=== PATIENT | female | born 1930 | race Caucasian/White ===

== ENCOUNTER → 2016-08-20 | Outpatient (CLI) | payer OTHER ==
[2016-03-02 14:05] VITALS: BP 183/104
--- NOTE | 2016-08-20 16:39 | RAD ---
HISTORY: Possible aspiration, coughing Study: Single-view chest Comparison: March 02, 2016 Findings: The trachea is midline. The cardiac silhouette is unremarkable. There are low lung volumes but no evidence of acute infiltrate or consolidation. Very mild right perihilar subsegmental atelectasis is noted. There is alteration of the bilateral costophrenic angles were small volume pleural effusions cannot be excluded. The bony thorax is grossly intact. IMPRESSION: 1. Mild subsegmental atelectasis but without acute infiltrate or consolidation. Obscuration of the bilateral costophrenic angles could reflect small volume bibasilar pleural effusions. Reported By:
== END | disposition home or self-care (01) | DRG 204 ==
LOC: RAD 13:26
PROVIDERS: ATTEND Internal Medicine
DX: R05 Cough (principal); J98.11 Atelectasis
CPT/HCPCS: 71010

== ENCOUNTER → 2016-08-28 | Outpatient (CLI) | payer OTHER ==
[2016-03-02 14:05] VITALS: BP 183/104
--- NOTE | 2016-08-29 07:26 | RAD ---
HISTORY: Cough Study: Chest one view Comparison: August 20, 2016 Findings: The trachea is midline. The cardiac silhouette is mildly enlarged. No congestive heart failure is n oted. The aorta is calcified.. The lungs are clear without focal infiltrate or effusion. There is s ubsegmental atelectasis in the right perihilar region. The bony thorax is unremarkable. IMPRESSION: 1. Mild cardiomegaly without congestive heart failure 2. Subsegmental atelectasis right perihilar region Reported By:
== END ==
LOC: RAD 19:02
PROVIDERS: ATTEND Internal Medicine
DX: R05 Cough (principal); R09.89 Other specified symptoms and signs involving the circulatory and respiratory systems; Z79.01 Long term (current) use of anticoagulants
CPT/HCPCS: 36415; 71010; 85610

== ENCOUNTER 2016-09-03 22:15 | Observation (INO) | payer OTHER ==
[2016-09-03] MEDS ORDERED: LEVAQUIN PREMIX IV 750 MG 750 MG/150 ML BAG IV ONE (23:00)
[2016-09-03] MEDS ORDERED: TUSSIONEX PENNKINETIC SUSP PO PRN (23:08)
[2016-09-03] MEDS ORDERED: NS 1/2 1000 ML IV 1,000 ML IV ONE (23:17)
[2016-09-03] MEDS: NS 1/2 1000 ML IV 1,000 ML IV SCH (23:31)
[2016-09-04] MEDS ORDERED: SALINE 3% 15 ML NEB TX ONE (00:04)
[2016-09-04] MEDS ORDERED: DUONEB 0.5 MG/3 MG ONE (00:04)
[2016-09-04 00:09] LABS: BASOPHILS % (AUTO) 0.1 % (0.2-1.0); EOSINOPHILS % (AUTO) 0.5 % (0.9-2.9); HEMATOCRIT 40.4 % (36.0-47.0); HEMOGLOBIN 13.4 g/dL (12.0-16.0); LYMPHOCYTES # (AUTO) 1.5 X10^3/uL (1.3-2.9); LYMPHOCYTES % (AUTO) 25.2 % (21.0-51.0); MEAN CORPUSCULAR HEMOGLOBIN 32.1 pg (27.0-34.0); MEAN CORPUSCULAR HGB CONC 33.2 g/dL (33.0-35.0); MEAN CORPUSCULAR VOLUME 96.5 fL (80.0-100.0); MEAN PLATELET VOLUME 8.5 fL (7.4-11.0); MONOCYTES # (AUTO) 0.8 x10^3/uL (0.3-0.8); MONOCYTES % (AUTO) 13.5 % (0.0-13.0); NEUTROPHILS # (AUTO) 3.6 x10^3/uL (2.2-4.8); NEUTROPHILS % (AUTO) 60.7 % (42.0-75.0); PLATELET COUNT 310 X10^3/uL (150.0-450.0); RED BLOOD COUNT 4.18 X10^6/uL (3.5-5.4); RED CELL DISTRIBUTION WIDTH 16.3 % (11.6-16.5); WHITE BLOOD COUNT 5.9 X10^3/uL (3.6-10.0)
[2016-09-04 00:15] LABS: ALANINE AMINOTRANSFERASE 34 Units/L (12-78); ALKALINE PHOSPHATASE 76 Units/L (46-116); ASPARTATE AMINO TRANSFERASE 34 Units/L (15-37); BLOOD UREA NITROGEN 15 mg/dL (7-18); CALCIUM 8.7 mg/dL (8.5-10.1); CARBON DIOXIDE 32.9 mmol/L (21-32); CHLORIDE 105 mmol/L (98-107); COR CA(FOR HYPOALB) 9.5 mg/dL (8.5-10.1); CREATININE 0.67 mg/dL (0.55-1.02); GLUCOSE 107 mg/dL (65-99); SODIUM 143 mmol/L (136-145); TOTAL PROTEIN 7.2 g/dL (6.4-8.2); eGFR BLACK RACES > 60 (>60); eGFR NON BLACK RACES > 60 (>60)
[2016-09-04 01:00] VITALS: BMI 20.5
[2016-09-04] MEDS: DUONEB 0.5 MG/3 MG NEB SCH ×5 (04:28→20:48)
--- NOTE | 2016-09-04 06:01 | RAD ---
HISTORY: Cough, pneumonia Study: Chest one view Comparison: August 28, 2016 Findings: The heart is mildly enlarged. No congestive heart failure is noted. No acute alveolar infiltrates ar e identified. Right perihilar and left basilar subsegmental atelectasis is present. No infiltrates a re identified. No pleural effusions are present. The bony thorax is unremarkable. IMPRESSION: Mild cardiomegaly without congestive heart failure Right perihilar and left basilar subsegmental atelectasis Reported By:
[2016-09-04 07:41] LABS: BASOPHILS % (AUTO) 0.2 % (0.2-1.0); EOSINOPHILS % (AUTO) 0.1 % (0.9-2.9); HEMATOCRIT 36.3 % (36.0-47.0); HEMOGLOBIN 12.3 g/dL (12.0-16.0); LYMPHOCYTES # (AUTO) 0.8 X10^3/uL (1.3-2.9); LYMPHOCYTES % (AUTO) 10.2 % (21.0-51.0); MEAN CORPUSCULAR VOLUME 94.1 fL (80.0-100.0); MEAN PLATELET VOLUME 8.1 fL (7.4-11.0); MONOCYTES # (AUTO) 0.8 x10^3/uL (0.3-0.8); MONOCYTES % (AUTO) 10.2 % (0.0-13.0); NEUTROPHILS # (AUTO) 5.9 x10^3/uL (2.2-4.8); NEUTROPHILS % (AUTO) 79.3 % (42.0-75.0); PLATELET COUNT 281 X10^3/uL (150.0-450.0); RED BLOOD COUNT 3.86 X10^6/uL (3.5-5.4); RED CELL DISTRIBUTION WIDTH 16.3 % (11.6-16.5); WHITE BLOOD COUNT 7.5 X10^3/uL (3.6-10.0)
[2016-09-04 07:57] LABS: ALANINE AMINOTRANSFERASE 34 Units/L (12-78); ALBUMIN 2.8 g/dL (3.4-5.0); ALKALINE PHOSPHATASE 67 Units/L (46-116); ASPARTATE AMINO TRANSFERASE 35 Units/L (15-37); BLOOD UREA NITROGEN 12 mg/dL (7-18); CALCIUM 8.3 mg/dL (8.5-10.1); CARBON DIOXIDE 27.4 mmol/L (21-32); CHLORIDE 103 mmol/L (98-107); COR CA(FOR HYPOALB) 9.3 mg/dL (8.5-10.1); GLUCOSE 101 mg/dL (65-99); SODIUM 138 mmol/L (136-145); TOTAL PROTEIN 6.7 g/dL (6.4-8.2); eGFR BLACK RACES > 60 (>60); eGFR NON BLACK RACES > 60 (>60)
[2016-09-04] MEDS: ROBITUSSIN DM PO SCH ×4 (08:52→21:59)
[2016-09-04] MEDS ORDERED: NS 1/2 1000 ML IV 1,000 ML IV ONE (14:14)
[2016-09-04] MEDS: NS 1/2 1000 ML IV 1,000 ML IV SCH (14:17)
[2016-09-04] MEDS ORDERED: TYLENOL ELIXIR 325 MG UDC PO PRN (17:28)
[2016-09-04] MEDS ORDERED: TORADOL 15 MG VIAL IM PRN (17:28)
[2016-09-04] MEDS: LACTOSE REDUCED FOOD PO SCH ×2 (17:58→21:53)
[2016-09-04] MEDS: LASIX PO SCH (17:58)
[2016-09-04] MEDS: ZANTAC PO SCH (17:58)
[2016-09-04] MEDS: VOLTAREN 1 % GEL MULTI DOSE TUBE TOP SCH (18:59)
[2016-09-04] MEDS ORDERED: COUMADIN TAB 5 MG PO SCH (21:00)
[2016-09-05] MEDS: DUONEB 0.5 MG/3 MG NEB SCH ×4 (00:16→12:18)
[2016-09-05] MEDS: VOLTAREN 1 % GEL MULTI DOSE TUBE TOP SCH ×2 (01:13→06:28)
[2016-09-05] MEDS ORDERED: NS 1/2 1000 ML IV 1,000 ML IV ONE (03:19)
[2016-09-05] MEDS: NS 1/2 1000 ML IV 1,000 ML IV SCH (03:20)
[2016-09-05 04:49] LABS: BASOPHILS % (AUTO) 0.2 % (0.2-1.0); HEMOGLOBIN 11.9 g/dL (12.0-16.0); LYMPHOCYTES % (AUTO) 6.6 % (21.0-51.0); MEAN CORPUSCULAR HEMOGLOBIN 31.4 pg (27.0-34.0); MEAN CORPUSCULAR VOLUME 95.1 fL (80.0-100.0); MEAN PLATELET VOLUME 8.3 fL (7.4-11.0); MONOCYTES % (AUTO) 6.8 % (0.0-13.0); NEUTROPHILS # (AUTO) 12.4 x10^3/uL (2.2-4.8); NEUTROPHILS % (AUTO) 86.4 % (42.0-75.0); PLATELET COUNT 282 X10^3/uL (150.0-450.0); RED BLOOD COUNT 3.78 X10^6/uL (3.5-5.4); WHITE BLOOD COUNT 14.3 X10^3/uL (3.6-10.0)
[2016-09-05 05:03] LABS: ALANINE AMINOTRANSFERASE 33 Units/L (12-78); ALBUMIN 2.8 g/dL (3.4-5.0); ALKALINE PHOSPHATASE 73 Units/L (46-116); ASPARTATE AMINO TRANSFERASE 29 Units/L (15-37); BLOOD UREA NITROGEN 9 mg/dL (7-18); CALCIUM 8.6 mg/dL (8.5-10.1); CHLORIDE 103 mmol/L (98-107); COR CA(FOR HYPOALB) 9.6 mg/dL (8.5-10.1); CREATININE 0.58 mg/dL (0.55-1.02); GLUCOSE 96 mg/dL (65-99); SODIUM 138 mmol/L (136-145); TOTAL PROTEIN 6.7 g/dL (6.4-8.2); eGFR BLACK RACES > 60 (>60); eGFR NON BLACK RACES > 60 (>60)
[2016-09-05] MEDS ORDERED: LEVAQUIN PREMIX IV 750 MG 750 MG/150 ML BAG IV SCH (09:00)
[2016-09-05] MEDS: LACTOSE REDUCED FOOD PO SCH (09:46)
[2016-09-05] MEDS: LASIX PO SCH (09:46)
[2016-09-05] MEDS: ROBITUSSIN DM PO SCH (09:47)
[2016-09-05] MEDS: ZANTAC PO SCH (09:47)
--- NOTE | 2016-09-05 10:58 | DR.H&P ---
H&P - History & Physical for Day of: H&P Date: 09/03/16 - Chief Complaint Chief Complaint: cough, shortness of breath - Allergies Allergies/Adverse Reactions: Allergies Allergy/AdvReac Type Severity Reaction Status Date / Time No Known Drug Allergies Allergy Verified 09/04/16 21:24 - History of Present Illness History of Present Illness: Patient is a 86yo female who was directed admitted to the hospital from [facility] related to worsening cough and running a low grade temperature as well as hypertension and increased pulse. Patient has a history of dementia, hyperlipidemia, hypertension, osteoarthritis , anemia, anxiety and she is aphasic. Patient has been in a chronic debilitative state. We are going to admit patient and start on pneumonia protocol with Levaquin IV and NS@75ml/hr. Vital signs on arrival 97.4, 92, 18, 96%, 151/71. Labs on arrival within normal limits with the exception of [place]% 13.5, Eos% 0.5, Baso% 0.1, Carbon dioxide 32.9, Glucose 107, Albumin 3.0, Albumin/globulin ratio 0.7. Chest xray show mild cardiomegaly without congestive heart failure, right perihilar and left basilar subsegmental atelectasis. We will follow up with patient in the am with repeat labs in the am. - Past Medical History Past Medical History: Alzheimers, Anemia, Anxiety, Dementia, Dyslipidemia, Hypertension Additional Medical History: UTI's, Muscle Weakness, Osteoarthritis, Previous Blood Transfusion - Past Surgical History Surgical History: No History - Family History Family Medical History: Cancer, [place] - Social History Does patient currently use any type of tobacco product: No Have you used tobacco products in the last 12 months: No Type of Tobacco Use: None Does any household member use tobacco: No Alcohol Use: None Drug Use: None - Medications Home Medications: Zantac 150mg daily, voltaren gel TID, tlenol elixir 650mg TID PRN, Lasix 20mg daily, ensure enlive BID, Coumadin 5mg at bedtime - Review of Systems Constitutional: Fever Eyes: No Symptoms Reported ENT: No Symptoms Reported Respiratory: Cough, Sputum Cardiovascular: No Symptoms Reported Gastrointestinal: No Symptoms Reported Genitourinary: No Symptoms Reported Musculoskeletal: No Symptoms Reported Skin: No Symptoms Reported Neurological: No Symptoms Reported - Physical Exam Vital Signs: 97.4, 92, 18, 96%, 151/71dddddddddddddd Oriented: Unable to test Eyes: Normal Ear: Normal Nose: Normal Throat: Normal Respiratory: Rhonchi Throughout Cardiovascular: Normal : Normal Auscultation: Bowel Sounds: Normal Palpation: Normal Tenderness: Normal Skin: Normal Musculoskeletal: Instability Mood Description: Flat, Appropriate Affect: Flat Speech Pattern: Aphasic - Assessment/Plan (1) Pneumonia Qualifiers: Pneumonia type: P Aspiration pneumonia type: A Laterality: L Lung location: L Status: Acute Plan: pneumonia protocol, levaquin IV
--- NOTE | 2016-09-05 11:17 | PCM.PROG ---
Progress Note - Progress Note for Day of Date: 09/04/16 - Subjective Subjective: Patient is an 86yo female admitted with pneumonia. Patient is noted to have bilateral rhochi and productive cough. Patient is in a chronic debilitative state and aphasic. Family has voiced that the do not want any resuscitative measures taken on patient. Vital signs this am are 98.4, 115, 18, 94%, 131/88. Labs are within normal limits with the exception of Neut% 79.3, Lymph% 10.2, Eos% 0.1, Neut# 5.9, Lymph# 0.8, INR 2.86, Glucose 101, Calcium 8.3 , Albumin 2.8, Albumin/globulin ratio 0.7. Patient is an 86yo female admitted with pneumonia. Patient is noted to have bilateral rhochi and productive cough. Patient is in a chronic debilitative state and aphasic. Family has voiced that the do not want any resuscitative measures taken on patient. Vital signs this am are 98.4, 115, 18, 94%, 131/88. Labs are within normal limits with the exception of Neut% 79.3, Lymph% 10.2, Eos% 0.1, Neut# 5.9, Lymph# 0.8, INR 2.86 , Glucose 101, Calcium 8.3, Albumin 2.8, Albumin/globulin ratio 0.7. - Past Medical Family Social History Past Med/Fam/Surg Hx: No changes since H&P Allergies: Allergies No Known Drug Allergies Allergy (Verified 09/04/16 21:24) - Review of Systems ROS: No change since H&P - Vital Signs and I&O's Vital Signs: 98.4, 115, 18, 94%, 131/88. Intake and Output: Intake & Output 09/02/16 09/03/16 09/04/16 09/05/16 11:59 11:59 11:59 11:59 Intake Total 463 742 Balance 463 742 - Physical Exam Oriented: Unable to test Eyes: Normal Ear: Normal Nose: Normal Throat: Normal Respiratory: Right, Left, Rhonchi Cardiovascular: Normal : Normal Auscultation: Bowel Sounds: Normal Palpation: Normal Tenderness: Normal Skin: Normal Musculoskeletal: Instability Psychiatric: Normal Mood Description: Flat, Appropriate Affect: Flat Speech Pattern: Aphasic - Laboratory and Diagnostics Result Diagrams: 09/05/16 04:00 09/05/16 04:00 Labs: Labs are within normal limits with the exception of Neut% 79.3, Lymph% 10.2, Eos % 0.1, Neut# 5.9, Lymph# 0.8, INR 2.86, Glucose 101, Calcium 8.3, Albumin 2.8, Albumin/globulin ratio 0.7. Radiology Reviewed: Yes - Plan (1) Pneumonia Status: Acute Qualifiers: Pneumonia type: P Aspiration pneumonia type: A Laterality: L Lung location: L Plan: pneumonia protocol, levaquin IV
--- NOTE | 2016-09-05 11:20 | DR.CARTERD ---
- Discharge Summary for: Discharge Summary for Date of:: 09/05/16 - Admission Date Date of Admission: 09/03/16 - Admission Diagnoses Admission Diagnosis: Pneumonia - Discharge Date Discharge Date: 09/05/16 - Discharge Diagnoses Discharge Diagnosis: Pneumonia - Hospital Course Hospital Course: Patient is a 86yo female who was directed admitted to the hospital from [facility] related to worsening cough and running a low grade temperature as well as hypertension and increased pulse. Patient has a history of dementia, hyperlipidemia, hypertension, osteoarthritis, anemia, anxiety and she is aphasic. Patient has been in a chronic debilitative state. We are going to admit patient and start on pneumonia protocol with Levaquin IV and NS@75ml/ hr. Vital signs on arrival 97.4, 92, 18, 96%, 151/71. Labs on arrival within normal limits with the exception of [place]% 13.5, Eos% 0.5, Baso% 0.1, Carbon dioxide 32.9, Glucose 107, Albumin 3.0, Albumin/globulin ratio 0.7. Chest xray show mild cardiomegaly without congestive heart failure, right perihilar and left basilar subsegmental atelectasis. Patient is noted to have bilateral rhochi and productive cough. Speech therapy has evaluated patient and recommended that patient have an NPO status and hold oral medications as she is an aspiration risk. The family has decided that they would like withhold treatment and do not want a peg tube placed for nutrients. They have decided that they would like to let [facility]. Vital signs this am 99.0, 94, 20, 145/88. Labs are within normal limits with the exception of WBC 14.3, Hgb 11.9, Neut% 86.4, Lymph% 6.6, Eos% 0.0, Neut# 12.4, Lymph# 1.0, [place]# 1.0, INR 2.91, Albumin 2.8, Albumin/globulin 0.7. We are going to honor the familys wishes and discharge her back to [facility] with comfort measure. We will continue to follow patient at the detention. Home medications will all be discontinued and new medications include fentanyl patch 50mcg change every 72hrs and morphine oral solution 3 drops every 4hrs. Labs: Labs are within normal limits with the exception of WBC 14.3, Hgb 11.9, Neut% 86.4, Lymph% 6.6, Eos% 0.0, Neut# 12.4, Lymph# 1.0, [place]# 1.0, INR 2.91, Albumin 2.8, Albumin/globulin 0.7 - Discharge Medications Discharge Medications: Fentanyl 50 Mcg/Hr [DURAGESIC PATCH 50 mcg/hr *] 1 each TD Q72H #5 patch [Rx] Morphine Sulf Oral Soln [ROXANOL ORAL SOLN 20 MG/ML (30ML btl) *] 3 drops PO Q4HR 30 Days 09/05/16 [Rx] - Discharge Disposition Discharge Disposition: [facility]
[2016-09-05 13:30] VITALS: BP 136/62
== END 2016-09-05 13:50 ==
LOC: MED/SURG 22:15
PROVIDERS: ADMIT Internal Medicine; ATTEND Internal Medicine
DX: J16.8 Pneumonia due to other specified infectious organisms (principal); R06.02 Shortness of breath; I10 Essential (primary) hypertension; B96.4 Proteus (mirabilis) (morganii) as the cause of diseases classified elsewhere; B95.7 Other staphylococcus as the cause of diseases classified elsewhere; E78.2 Mixed hyperlipidemia; I51.7 Cardiomegaly; R47.01 Aphasia; R79.1 Abnormal coagulation profile
CPT/HCPCS: 36415; 71010; 80053; 85025; 85610; 87040; 87070; 87077; 87186; 87205; 94640; 94760; A4222; G0378; J1956; J7620